=== PATIENT | female | born 1960 | race Two or more races ===

== ENCOUNTER 2024-06-16 08:29 | Emergency (ER) | payer OTHER ==
[~2024-06-16] VITALS: Ht 167.6 cm; Wt 95.3 kg
[2024-06-16] MEDS ORDERED: ALLERGY RELIEF10 M3 (08:42)
[2024-06-16] MEDS ORDERED: CANDESARTAN CILE4 MG (08:42)
[2024-06-16] MEDS ORDERED: KETOROLAC TROMETHAMINE 60 MG VIAL IM STA (08:58)
== END 2024-06-16 11:43 | disposition designated cancer center or children's hospital (05) ==
LOC: ER 08:31
DX: S52.539A Colles' fracture of unspecified radius, initial encounter for closed fracture (principal); S60.212A Contusion of left wrist, initial encounter; W19.XXXA Unspecified fall, initial encounter; Y93.89 Activity, other specified; Y92.59 Other trade areas as the place of occurrence of the external cause; Y99.8 Other external cause status; I10 Essential (primary) hypertension; Z88.6 Allergy status to analgesic agent
CPT/HCPCS: 29125; 73110; 96372; 99285; J1885